=== PATIENT | male | born 1980 | race Caucasian/White ===

== ENCOUNTER 2016-06-22 09:11 | Day surgery (SDC) | payer MEDICAID ==
[~2016-06-22] VITALS: Ht 177.8 cm; Wt 108.6 kg
--- NOTE | ~2016-06-22 | OR ---
PATIENT'S NAME: MELY LEIJA [facility] [place] AGE: 36 Y [address] ROOM: [place] [address] LOCATION: [facility] [place] ADMIT DATE: 06/22/2016 OR/Procedure Report DISCHARGE DATE: FAMILY PHYSICIAN: Shaun De MD ATTENDING PHYSICIAN: BEN DEL VALLE SURGEON: Ben Del Valle MD SALES SERVICE COORDINATOR: DATE OF PROCEDURE: 06/22/2016 PREOPERATIVE DIAGNOSIS: End-stage renal disease. POSTOPERATIVE DIAGNOSIS: End-stage renal disease. PROCEDURE PERFORMED: Left brachiocephalic arteriovenous fistula. OSS ARCHITECT: DEIRDRE Agrawal. ANESTHESIA: General. ESTIMATED BLOOD LOSS: 10 mL. OPERATIVE FINDINGS: Good thrill and bruit. Strong radial and ulnar signals at the end of the case. DESCRIPTION OF PROCEDURE: The patient was brought to the operating room, placed supine on the operating table, placed under general anesthesia, and prepped and draped in a sterile manner. Preoperative time-out was performed. The patient received preoperative antibiotics. We made a standard incision 2 cm proximal to the antecubital fossa, dissected down to the fascia, incised the fascia in a longitudinal manner, and dissected out the brachial artery in a 360-degree fashion. We then did the same thing for the cephalic vein, transected it distally after placing a large clip for ligation. We then gave 5000 units of heparin. We made a 4 mm arteriotomy on the brachial artery. We then did a standard 6-0 Prolene anastomosis from the vein to the artery. We removed the clamps. There was excellent flow into the cephalic vein which was confirmed with the use of Doppler, and we confirmed presence of radial and ulnar signals. Heparin was reversed with the use of protamine. We then reapproximated the deep layers with 2-0 and 3-0 Vicryl. Skin was closed with running 4-0 Monocryl. The patient tolerated the procedure well and was transferred to the recovery room and then home later that day. BEN DEL VALLE MD PATIENT'S NAME: MELY LEIJA [facility] [place] AGE: 36 Y [address] ROOM: [place], [place] [address] LOCATION: [facility] [place] ADMIT DATE: 06/22/2016 OR/Procedure Report DISCHARGE DATE: FAMILY PHYSICIAN: Shaun De MD ATTENDING PHYSICIAN: BEN DEL VALLE/mariaelenal /[id number] d: 06/22/16 1348 t: 06/24/16 1812, OPERATIVE SUMMARY
[~2016-06-22 09:11] MED LIST: DELTASONE20 M1 PO; DULCOLAX5 MG PO; FLUOXETINE HCL40 MG PO; HALDOL5 MG PO; NORVASC5 MG PO; PRINIVIL OR ZES10 MG PO; RENVELA800 MG PO; TRAZODONE HCL300 MG PO
[2016-06-22 09:59] LABS: HEMATOCRIT 30.4 % (37.0-53.0); HEMOGLOBIN 10.1 g/dL (12.0-17.0); MCH 31.6 pg (27.0-34.0); MCHC 33.2 gm/dL (32.0-36.5); MPV 9.8 fl (9.4-12.4); PLATELET COUNT 263 K/uL (150-450); RDW-CV 15.1 % (11.9-14.6); WBC 21.3 K/uL (4.0-11.0)
[2016-06-22] MEDS ORDERED: PROVENTIL OR V6.7 GM INH (10:12)
[2016-06-22] MEDS ORDERED: SYMBICORT 160/41 KIT INH (10:12)
[2016-06-22 10:14] LABS: ALBUMIN 2.7 gm/dL (3.5-5.0); TOTAL BILIRUBIN 0.2 mg/dL (0.0-1.5); TOTAL PROTEIN 5.9 g/dL (6.0-8.4)
[2016-06-22 10:15] LABS: ANION GAP 17.1 (10.0-19.0); POTASSIUM 5.1 mMol/L (3.7-5.1)
[2016-06-22 10:56] LABS: BANDED NEUTROPHIL # 1.1 K/uL (0.0-0.1); BANDED NEUTROPHILS % 5 %; LYMPHOCYTE # 3.2 K/uL (0.8-4.0); LYMPHOCYTE % 15 %; MONOCYTE # 0.9 K/uL (0.0-1.0); SEGMENTED NEUTROPHIL # 14.9 K/uL (1.4-9.0); SEGMENTED NEUTROPHIL % 70 %
[2016-06-22] MEDS ORDERED: NORCO 5-325 TA1 EACH PO (15:22)
== END 2016-06-22 15:40 ==
LOC: GSDC 09:11
PROVIDERS: Surgery Vascular Surgery
PROC: 03180KF Bypass Left Brachial Artery to Lower Arm Vein with Nonautologous Tissue Substitute, Open Approach (ICD-10-PCS; principal; 2016-06-22)
DX: I12.0 Hypertensive chronic kidney disease with stage 5 chronic kidney disease or end stage renal disease (principal); N18.6 End stage renal disease; F32.9 Major depressive disorder, single episode, unspecified; F41.9 Anxiety disorder, unspecified; F17.210 Nicotine dependence, cigarettes, uncomplicated; M19.90 Unspecified osteoarthritis, unspecified site; Z88.0 Allergy status to penicillin; Z99.2 Dependence on renal dialysis; Z79.52 Long term (current) use of systemic steroids; Z79.899 Other long term (current) drug therapy
CPT/HCPCS: J1644; J2001; J2250; J2720; J7030

== ENCOUNTER 2016-08-19 10:58 | Outpatient (CLI) | payer MEDICAID, MEDICARE ==
[~2016-08-19] VITALS: Ht 175.3 cm; Wt 105.4 kg
--- NOTE | ~2016-08-19 | OR ---
PATIENT'S NAME: MELY LEIJA [facility] AGE: 36 Y [address] ROOM: [place] [address] LOCATION: [facility] ADMIT DATE: 08/19/2016 OR/Procedure Report DISCHARGE DATE: FAMILY PHYSICIAN: Shaun De MD ATTENDING PHYSICIAN: BEN RAMIREZ SURGEON: Ben Ramirez MD LOSS PREVENTION AGENT: DATE OF PROCEDURE: 08/19/2016 PREOPERATIVE DIAGNOSIS: Poor flow volume in the left arm AV fistula. POSTOPERATIVE DIAGNOSIS: Poor flow volume in the left arm AV fistula. PROCEDURE: Fistulogram and fistuloplasty of arterial anastomosis. RESIN SHAVER: Chacho Alejandre MD. ANESTHESIA: MAC local. ESTIMATED BLOOD LOSS: 10 mL. OPERATIVE FINDINGS: High-grade stenosis of the arteriovenous anastomosis, balloon angioplasty with good result. DESCRIPTION OF PROCEDURE: The patient was brought to cath lab manager, placed supine on the cath lab manager table, and prepped and draped in a sterile manner. Preoperative time-out was performed. The patient received preoperative antibiotics. We gained access using ultrasound guidance going in an antegrade fashion to the left arm brachiocephalic fistula. We infiltrated 1% lidocaine, used micropuncture needle, followed by a micropuncture wire, followed by a micropuncture sheath exchanged using Seldinger technique for a 4-Marshallese short sheath. We performed a fistulogram which showed normal outflow, venous flow, but a high-grade stenosis of the arterial anastomosis. We passed a Thruway wire across the lesion, and then proceeded to give 5000 units of heparin. We balloon angioplastied with a 4 x 40 and then a 5 x 40 Garcia balloon with good relief of the stenosis and improvement of flow in the fistula. We removed the sheath. We reversed the heparin with protamine and placed a single 4-0 nylon stitch for hemostasis. The patient tolerated the procedure well and transferred to the recovery room and home later that day. BEN RAMIREZ MD PATIENT'S NAME: MELY LEIJA [facility] AGE: 36 Y [address] ROOM: [place] [address] LOCATION: [facility] ADMIT DATE: 08/19/2016 OR/Procedure Report DISCHARGE DATE: FAMILY PHYSICIAN: Shaun De MD ATTENDING PHYSICIAN: BEN RAMIREZ/ellen /[id number] d: 08/19/162206 t: 08/22/16 1200, OPERATIVE SUMMARY
[~2016-08-19 10:58] MED LIST changes: +NORCO 5-325 TA1 EACH PO; +PROVENTIL OR V6.7 GM INH; +SYMBICORT 160/41 KIT INH
== END 2016-08-19 15:00 | disposition disaster alternative care site (69) ==
LOC: GPCU 10:58 → GPOC 10:58
PROC: B50W1ZZ Plain Radiography of Dialysis Shunt/Fistula using Low Osmolar Contrast (ICD-10-PCS; principal; 2016-08-19)
PROC: 03783ZZ Dilation of Left Brachial Artery, Percutaneous Approach (ICD-10-PCS; 2016-08-19)
DX: T82.858A Stenosis of other vascular prosthetic devices, implants and grafts, initial encounter (principal)
CPT/HCPCS: C1725; J1644; J2250; J2720; J3010; J7030